=== PATIENT | female | born 1955 | race Caucasian/White ===

== ENCOUNTER → 2019-01-31 06:50 | Outpatient (CLI) | payer MEDICARE, SELFPAY ==
--- NOTE | 2019-01-31 | CA_ITS ---
APPROVED REPORT Exam: Pharmacologic Technologist: Leticia Padilla Ht: 5 ft 3 in Wt: 210 lbs BSA: 1.97 m2 HR: 63 bpm BP: 158/54 mmHg Indications: Chest pain Medical History Medications: Aspirin,,,,, Metoprolol,,,,, Metformin,,,,, Losartan,,,,, HCTZ,,,,, GlYBURIDE,,,,, LanTUS,,,,, Stress Test Details Test: LEXISCAN HR Resting HR: 58 bpm Max Heart Rate (APMHR): 155 bpm Max HR Achieved: 66 bpm Target HR (85% APMHR): 131 bpm % of APMHR: 42 Recovery HR: 65 bpm BP Resting BP: 158.0/54.0 mmHg Max BP: 158.0/54.0 mmHg Recovery BP: 149.0/65.0 mmHg ECG Clinical Exercise duration: 04:10 min Highest Stage Achieved: Exercise capacity: 1.0 METs Stress ECG Conclusion Resting ECG: Sinus bradycardia, sinus rhythm, abnormal. Lexiscan portion completed. Symptoms: Shortness of breath during peak infusion, resolved in recovery. No chest pain. Arrhythmias/Ectopy: Occasional PVC ST-T Changes: Less than 1.[address] depression. Conclusion: Images to follow. Electronically signed by : Neftaly Deng, 02/01/2019 05:59:50
--- NOTE | 2019-01-31 06:51 | NM_ITS ---
APPROVED REPORT Exam: Nuclear Stress Test Indication: Chest pain, SOB, Fatigue, Abnormal EKG, HTN, DM, High cholesterol, Family history Patient Location: Outpatient Stress Tech: Leticia Padilla [place] Tech:Moon Hagan, ARRT, RT (R)(N) Ht: 5 ft 3 in Wt: 210 lbs Bra Size: 42D HR: 63 bpm BP: 158/54 mmHg BSA: 1.97 m2 BMI: 37.1 History: Chest pain, SOB, Fatigue, Abnormal EKG, HTN, DM, High cholesterol, Family history Procedure: Patient received a 0.4 mg of intravenous Lexiscan, resting heart rate 63 bpm, resting blood pressure 158/54 mmHg, with Lexiscan maximum heart rate achived was 62 bpm which is Less than 85 % of the maximum predicted heart rate and blood pressure was 124/54 mmHg. With Lexiscan, patient denied any complaint of chest pain. Electrocardiogram Resting electrocardiogram showed sinus bradycardia right ventricular conduction delay, possible right ventricular hypertrophy, or posterior infarct, with Lexiscan there is less than 1.[address] segment depression noted from the baseline EKG. The EKG portion of the Lexiscan Myoview is nondiagnostic. Cardiac Stress and Resting SPECT Images: Cardiac Stress and Resting SPECT images were obtained using technetium 99m Myoview 32.0 mCi stress and 10.54 mCi at rest. Gated SPECT with analysis of segmental wall motion and calculation of the ejection fraction also done. Cardiac stress and resting SPECT images show uniform myocardial activity without segmental perfusion abnormality, computer derived ejection fraction is over 65% with no regional wall motion abnormality, right ventricle is mildly enlarged with normal contractility. Conclusion: 1. The EKG portion of the Lexiscan Myoview is nondiagnostic. 2. No scintigraphic evidence of reversible ischemia seen, computer derived ejection fraction is over 65% with no regional wall motion abnormality, right ventricle is mildly enlarged with normal contractility. 3. Normal Lexiscan Myoview study except the right ventricle is mildly enlarged with normal contractility. Electronically signed by : Neftaly Deng, 02/01/2019 06:01:51
--- NOTE | 2019-01-31 06:51 | CA_ITS ---
APPROVED REPORT EXAM: Comprehensive 2D, Doppler, and color-flow Echocardiogram Edge Inker Heels: Kristyn Garza RDCS Ht: 5 ft 3 in Wt: 210lbs BSA: 1.97 BP: 179/82 mmHg Indications: Abnormal ECG, Chest Pain, Shortness of Breath, Diabetes, Fatigue, Hypertension/HDD M-Mode Dimensions RVDd 3.38 cm (0.9-2.6) LVDd 4.03 cm (3.5-5.7) LVDs 3.10 cm (3.5-5.7) IVSd 1.45 cm (0.6-1.1) PWd 1.29 cm (0.6-1.1) EF (Teich) 46.80% FS 23.10% EDV (Teich) 71.30 mL ESV (Teich) 37.90 mL LV Diastology E/A Ratio 0.55 Mitral Valve MV A Velocity 107.00 (40-130 cm/s) Left Ventricle Left atrium is mildly enlarged, left ventricle is normal size, mild concentric left ventricular hypertrophy, visually estimated ejection fraction 55% with no regional wall motion abnormality, grade 1 diastolic dysfunction seen without tissue Doppler evidence of raise left atrial pressure. Right Ventricle Right atrium and right ventricle mildly enlarged with normal contractility. Aortic Valve Aortic valve is minimally thickened and fibrosed, there is no aortic stenosis aortic insufficiency. Mitral Valve Mitral valve leaflets are minimally thickened, there is mild mitral regurgitation. Tricuspid Valve Tricuspid valve is grossly normal, there is mild tricuspid regurgitation, calculated right ventricular systolic pressure is 48 mmHg which is moderately elevated. Pulmonic Valve Pulmonic valve is poorly visualized. Great Vessels Aortic root is normal size. Pericardium No significant pericardial effusion noted. Conclusion 1. Mildly enlarged left atrium, normal left ventricular size, mild concentric left ventricular hypertrophy, visually estimated ejection fraction 55% with no regional wall motion abnormality, grade 1 diastolic dysfunction seen without tissue Doppler evidence of raise left atrial pressure. 2. Mildly enlarged right ventricle with normal contractility. 3. Thickened and calcified aortic valve without aortic stenosis aortic insufficiency. 4. Mild mitral and tricuspid regurgitation, calculated right ventricular systolic pressure is 48 mmHg consistent with moderately elevated right ventricular systolic pressure. 5. Inferior vena cava is not well-visualized, no significant pericardial effusion noted. Electronically signed by : Neftaly Deng 02/01/2019 06:28:30
--- NOTE | 2019-01-31 09:09 | HMH.ITSHM ---
Current Home Medications as stated by this patient Mony Crow or sales support representative. []METFORMIN GLYBURIDE ASA LANTUS HCTZ METOPROLOL LOSARTAN VITAMIN C VITAMIN D3 OSCAR MINAYA
== END ==
PROVIDERS: PCP Family Medicine; Visit Provider Urology
DX: I10 Essential (primary) hypertension (principal); R06.02 Shortness of breath; R07.9 Chest pain, unspecified; R53.83 Other fatigue; R94.31 Abnormal electrocardiogram [ECG] [EKG]
CPT/HCPCS: 78452; 93017; 93306; A9502; J2785

== ENCOUNTER → 2019-02-22 09:19 | Outpatient (CLI) | payer MEDICARE, SELFPAY ==
[2019-02-22 11:25] LABS: Anion Gap 13.3 mEq/L (5-15); Blood Urea Nitrogen 21 mg/dL (7-18); Calcium 8.2 mg/dL (8.5-10.1); Carbon Dioxide 32 mmol/L (21.0-32.0); Chloride 103 mmol/L (98-107); Creatinine,Serum 0.87 mg/dL (0.55-1.02); Estimated Glomerular Filt Rate 65 ml/min (>60); GFR (African American) 79 ML/MIN (>60); Glucose 86 mg/dL (74-106); Potassium 3.3 mmoL/L (3.5-5.1); Sodium 145 mmol/L (136-145)
== END ==
PROVIDERS: Visit Provider Nurse Practitioner Family
DX: I27.20 Pulmonary hypertension, unspecified (principal); I50.30 Unspecified diastolic (congestive) heart failure; R60.9 Edema, unspecified; R06.02 Shortness of breath
CPT/HCPCS: 36415; 80048

== ENCOUNTER → 2019-03-07 14:42 | Outpatient (CLI) | payer MEDICARE, SELFPAY ==
[2019-03-07 16:11] LABS: Anion Gap 12.6 mEq/L (5-15); Blood Urea Nitrogen 12 mg/dL (7-18); Calcium 8.4 mg/dL (8.5-10.1); Carbon Dioxide 31 mmol/L (21.0-32.0); Chloride 106 mmol/L (98-107); Creatinine,Serum 0.76 mg/dL (0.55-1.02); Estimated Glomerular Filt Rate 76 ml/min (>60); GFR (African American) 92 ML/MIN (>60); Glucose 99 mg/dL (74-106); Potassium 3.6 mmoL/L (3.5-5.1); Sodium 146 mmol/L (136-145)
== END ==
PROVIDERS: Visit Provider Urology
DX: I27.20 Pulmonary hypertension, unspecified; I10 Essential (primary) hypertension; R60.9 Edema, unspecified
CPT/HCPCS: 36415; 80048

== ENCOUNTER 2020-07-15 19:45 | Emergency (ER) | payer MEDICARE, SELFPAY ==
[2020-07-15 19:47] VITALS: BP 207/69; PULSE 59; RESP 18; TEMP 36.7; O2SAT 99; BMI 42.0
--- NOTE | 2020-07-15 20:31 | XR_ITS ---
PROCEDURE INFORMATION: Exam: XR Chest Exam date and time: 07/15/20 08:31 PM Age: 64 years old Clinical indication: Other: Edema in extremeties. ; Patient HX: Edema in all extremeties. ; Additional info: Cp TECHNIQUE: Imaging protocol: XR of the chest. Views: 2 views. COMPARISON: CR XR CHEST 2V 01/16/19 10:18 PM FINDINGS: Lungs: Unremarkable. No consolidation. Pleural spaces: Unremarkable. No pleural effusion. No pneumothorax. Heart/Mediastinum: Unremarkable. No cardiomegaly. Bones/joints: Unremarkable. IMPRESSION: No acute findings.
--- NOTE | 2020-07-15 20:35 | ECG_ITS ---
APPROVED REPORT Exam: Resting ECG HR:52 bpm ECG Measurements Heart Rate 52 AXES ME 182 P 46 QRSd 104 QRS 0 QT 482 T 30 QTc 448 Conclusion Sinus bradycardia Otherwise normal ECG Electronically signed by : Steven Carlin, 07/18/2020 21:25:55
[2020-07-15 20:43] LABS: Microscopic, Urine URINE MICROSCOPIC (MICROSCOPIC)
[2020-07-15 20:48] LABS: Appearance,Urine CLEAR (Clear); Bilirubin,Urine Negative (Negative); Blood, Urine Negative (Negative); Color,Urine YELLOW (Yellow); Glucose,Urine (UA) Negative (Negative); Ketones,Urine Negative (Negative); Leukocyte Esterase,Urine 1+ (Negative); Nitrate,Urine Negative (Negative); PH,Urine 6.5 (5.0-8.5); Protein,Urine Negative (Negative); Specific Gravity, Urine <= 1.005 (1.005-1.030); Urobilinogen,Urine 0.2 EU/dl (0.2)
[2020-07-15 20:55] VITALS: BP 178/72; PULSE 53
[2020-07-15 21:01] LABS: Bacteria,Urine 1+ /lpf
[2020-07-15 21:09] LABS: Basophils % 0.4 % (0.1-2.0); Eosinophils # 0.3 K/mm3 (0.0-0.4); Eosinophils % 4.4 % (0.1-12.0); Hematocrit 33.8 % (37.0-47.0); Lymphocytes # 1.9 K/mm3 (0.7-4.5); Lymphocytes % 26.5 % (10-50); Mean Corpuscular HGB Conc 32.4 g/dL (31.8-35.4); Mean Corpuscular Hemoglobin 29.5 pg (27.0-31.2); Mean Corpuscular Volume 91.1 fl (81-99); Mean Platelet Volume 8.1 fl (7.4-10.4); Monocytes # 0.6 K/mm3 (0.1-1.0); Monocytes % 8.4 % (1.7-9.3); Neutrophils # 4.3 K/mm3 (1.8-7.8); Neutrophils % 60.4 % (37.0-80.0); Platelet Count 169 K/mm3 (142-424); Red Blood Count 3.71 M/mm3 (4.20-5.40); Red Cell Distribution Width 13.6 % (11.5-17.5); White Blood Count 7.2 K/mm3 (4.8-10.8)
[2020-07-15 21:14] LABS: Chloride 100 mmol/L (98-107); Sodium 138 mmol/L (136-145)
[2020-07-15 21:15] LABS: Potassium 4.3 mmoL/L (3.5-5.1)
[2020-07-15 21:17] LABS: Blood Urea Nitrogen 25 mg/dl (7-17); Creatinine Clearance Estimated 46 mL/min (50-200); Estimated Glomerular Filt Rate 72 ml/min (>60); GFR (African American) 87 ML/MIN (>60)
[2020-07-15 21:18] LABS: Anion Gap 10.3 mEq/L (5-15); Calcium 9.8 mg/dl (8.4-10.2); Carbon Dioxide 32 mmol/L (22.0-30.0); Glucose 126 mg/dl (74-100)
--- NOTE | 2020-07-15 21:19 | HMH.EDCP ---
ED Disposition Clinical Impression: Chest pain Qualifiers: Chest pain type: precordial pain Qualified Code(s): R07.2 - Precordial pain HTN (hypertension) Qualifiers: Hypertension type: essential hypertension Qualified Code(s): I10 - Essential (primary) hypertension UTI (urinary tract infection) Qualifiers: Urinary tract infection type: site unspecified Hematuria presence: without hematuria Qualified Code(s): N39.0 - Urinary tract infection, site not specified Disposition: Home, Self-Care Condition on Discharge: Good Instructions: DI for Chest Pain Additional Instructions: see card in am and call pcp for follow up and urine culture results Prescriptions: levoFLOXacin [Levaquin 500mg tab] 500 mg PO DAILY #7 tab Transmission Status: P[id number] Referrals: Linus Mata MD [Primary Care Provider] - - Critical Care Critical Care Time: No Attestation: On 07/15/20, the high probability of a clinically significant, sudden or life threatening deterioration of the following system(s) required my full and direct attention, intervention and personal management. The time I documented below is in addition to time spent performing reported procedures but includes the following listed in this critical care notation. Medical Decision Making - Medical Records Medical records reviewed: Yes: I reviewed the patient's medical records. - Anthony Inquiry Pt receiving controlled substance: No Vital Signs: 07/15/20 19:47 07/15/20 20:55 07/15/20 21:30 Temperature 98.0 F Temperature Source Oral Pulse Rate 53 L 51 L Pulse Rate [Right Radial] 59 L Respiratory Rate 18 Blood Pressure 178/72 H 147/57 H Blood Pressure [Right Arm] 207/69 H Blood Pressure Mean [Right Arm] 115 Blood Pressure Source Manual Cuff/ Auscultation Automatic Cuff Blood Pressure Source [Right Arm] Automatic Cuff Blood Pressure Position Sitting Sitting Blood Pressure Position [Right Arm] Sitting 02 Sat by Pulse Oximetry 99 99 Oxygen Delivery Method Room Air Room Air 07/15/20 22:00 07/15/20 22:30 Temperature Temperature Source Pulse Rate 50 L 50 L Pulse Rate [Right Radial] Respiratory Rate Blood Pressure 142/52 H 144/49 H Blood Pressure [Right Arm] Blood Pressure Mean [Right Arm] Blood Pressure Source Automatic Cuff Automatic Cuff Blood Pressure Source [Right Arm] Blood Pressure Position Sitting Supine Blood Pressure Position [Right Arm] 02 Sat by Pulse Oximetry 98 98 Oxygen Delivery Method Room Air Room Air - Lab Data Lab results reviewed: Yes: I reviewed the patient's lab results. Lab Results 07/15/20 20:40: Urine Color Yellow, Urine Appearance Clear, Urine pH 6.5, Ur Specific [place] <= 1.005, Urine Protein Negative, Urine Glucose (UA) Negative, Urine Ketones Negative, Urine Blood Negative, Urine Nitrate Negative, Urine Bilirubin Negative, Urine Urobilinogen 0.2, Ur Leukocyte Esterase 1+ A, Urine RBC None, Urine WBC 10-20, Ur Squamous Epith Cells 5-10, Urine Bacteria 1+ 07/15/20 20:53: WBC 7.2, RBC 3.71 L, Hgb 11.0 L, Hct 33.8 L, MCV 91.1, MCH 29.5, MCHC 32.4, RDW 13.6, Plt Count 169, MPV 8.1, Neut % (Auto) 60.4, Lymph % (Auto) 26.5, Nance % (Auto) 8.4, Eos % (Auto) 4.4, Baso % (Auto) 0.4, Neut # (Auto) 4.3, Lymph # (Auto) 1.9, Nance # (Auto) 0.6, Eos # (Auto) 0.3, Baso # (Auto) 0.0 07/15/20 20:53: Sodium 138, Potassium 4.3, Chloride 100, Carbon Dioxide 32 H, Anion Gap 10.3, BUN 25 H, Creatinine 0.80, Estimated Creat Clear 46, Estimated GFR 72, Est GFR ( Amer) 87, Glucose 126 H, Calcium 9.8, Troponin I < 0.01 07/15/20 20:53: NT-Pro-B Natriuret Pep 844 H 07/15/20 22:27: Troponin I < 0.01 Result diagrams: 07/15/20 20:53 07/15/20 20:53 Orders (Tests/Meds): ED MEDICATIONS Generic Name Dose Route Start Last Admin Trade Name Freq PRN Reason Stop Dose Admin Ceftriaxone Sodium 1 gm/ 50 mls @ 100 mls/hr 07/15/20 21:45 07/15/20 21:38 Sodium Chloride IV 07/29/20 21:44
[2020-07-15 21:27] LABS: NT Pro Brain Natriuretic Pep. 844 pg/mL (0-125)
[2020-07-15 21:30] VITALS: BP 147/57; PULSE 51; O2SAT 99
[2020-07-15 21:31] LABS: Troponin I < 0.01 ng/ml (0.00-0.034)
[2020-07-15 22:00] VITALS: BP 142/52; PULSE 50; O2SAT 98
[2020-07-15 22:30] VITALS: BP 144/49; PULSE 50; O2SAT 98
[2020-07-15 22:54] LABS: Troponin I < 0.01 ng/ml (0.00-0.034)
[2020-07-15 23:14] VITALS: BP 138/55; PULSE 52; RESP 18; TEMP 36.6; O2SAT 99
== END 2020-07-15 23:16 | disposition home or self-care (01) ==
PROVIDERS: Emergency Medicine; Emergency Provider Student in an Organized Health Care Education/Training Program; PCP Family Medicine
DX: R07.2 Precordial pain (principal); R60.9 Edema, unspecified; I10 Essential (primary) hypertension; N39.0 Urinary tract infection, site not specified; E11.9 Type 2 diabetes mellitus without complications; F41.9 Anxiety disorder, unspecified; Z88.1 Allergy status to other antibiotic agents; Z79.899 Other long term (current) drug therapy; R06.02 Shortness of breath
CPT/HCPCS: 71046; 80048; 81001; 83880; 84484; 85025; 87086; 93005; 96365; 99283

== ENCOUNTER → 2020-08-08 14:55 | Outpatient (CLI) | payer MEDICARE, SELFPAY ==
--- NOTE | 2020-08-08 14:55 | CA_ITS ---
APPROVED REPORT EXAM: Comprehensive 2D, Doppler, and color-flow Echocardiogram Gas Specialist: JOSE ALEJANDRO [place], RVS Ht: 5 ft 3 in Wt: 232lbs BSA: 2.06 BP: 144/36 mmHg Indications: SOA, CP, HTN, diastolic dysfunction, edema Echo Enhancing Agent Comments: Poor acoustic windows throughout exam 2D Dimensions IVSd 1.15 cm LVEF (Visual) 45.60 % PWd 1.33 cm LA Volume 60.00 mL LVDd 4.56 cm LA Volume Index 29.10 mL/m2 (M/F) 16-34 LVDs 3.53 cm LVOT 1.72 cm (M/F) 1.5-2.5 M-Mode Dimensions LA Diam 4.36 cm (1.9-4.0) LVDd 4.81 cm (3.5-5.7) Ao Diam 2.64 cm (2.0-3.7) LVDs 2.46 cm (3.5-5.7) EF (Teich) 80.20% EPSs 0.34 cm FS 48.90% EDV (Teich) 108.00 mL TAPSE 2.90 (<1.7) ESV (Teich) 21.40 mL LV Diastology E Decel Time 313.00 (160-240 msec) E/A Ratio 1.05 MED E' 8.60 (< 7 cm/sec) MED A' 9.20 cm/s E'/MED E' Ratio 12.24 (>14) LAT E' 8.50 (<10 cm/sec) LAT A' 11.60 cm/s E/LAT E' Ratio 12.39 (>14) Pulm Vein s 40.00 cm/sec Pulm Vein d 27.00 cm/sec Ar-A Duration 123.00 msec Aortic Valve LVOT Max 139.00 (70-110 cm/s) LVOT VTI 41.51 cm AoV Peak Darren. 198.00 (50-130 cm/s) AO Peak GR. 15.70 mmHg AO Mean GR. 8.20 (<5 mmHg) AO VTI 48.15 (18-25 cm) LARA (VTI) 2.00 (2.5-4.5 cm2) Mitral Valve MV A Velocity 100.00 (40-130 cm/s) E/A Ratio 1.05 MV Decel. Time 313.00 (160-240 ms) MV Mean Gr. 1.80 (<2mmHg) Pulmonary Valve PV Peak Velocity 112.00 (50-150 cm/s) Tricuspid Valve TR P. Velocity 282.00 cm/s RAP Estimate 10.00 mmHg RVSP 41.80 mmHg Left Ventricle Left atrium is mildly enlarged, left ventricle is normal size, mild concentric left ventricular hypertrophy, visually estimated ejection fraction 55% with no regional wall motion abnormality, diastolic parameters are inconclusive. Right Ventricle Right atrium and right ventricle are normal size and contractility. Aortic Valve Aortic valve is minimally thickened and fibrosed, there is no aortic stenosis or aortic insufficiency. Mitral Valve Mitral valve has mitral calcification there is no mitral stenosis, there is mild mitral regurgitation. Tricuspid Valve Tricuspid grossly normal, there is trace tricuspid regurgitation, tricuspid regurgitation jet velocity is inadequate for calculation of the right ventricular systolic pressure. Pulmonic Valve Pulmonic valve is poorly visualized. Great Vessels Aortic root is normal size. Pericardium No significant pericardial effusion noted. Conclusion 1. Mildly enlarged left atrium, normal left ventricular size, mild concentric left ventricular hypertrophy, visually estimated ejection fraction 55% with no regional wall motion abnormality, diastolic parameters are inconclusive. 2. Thickened and calcified aortic valve without Doppler evidence of aortic stenosis or aortic insufficiency. 3. Mild mitral and trace tricuspid regurgitation. 4. No significant pericardial effusion noted. Electronically signed by : Neftaly Deng, 08/08/2020 16:26:04
[2020-08-08 16:29] LABS: Chloride 100 mmol/L (98-107); Potassium 4.6 mmoL/L (3.5-5.1); Sodium 139 mmol/L (136-145)
[2020-08-08 16:32] LABS: Anion Gap 10.6 mEq/L (5-15); Blood Urea Nitrogen 39 mg/dl (7-17); Calcium 9.6 mg/dl (8.4-10.2); Carbon Dioxide 33 mmol/L (22.0-30.0); Estimated Glomerular Filt Rate 45 ml/min (>60); GFR (African American) 54 ML/MIN (>60); Glucose 208 mg/dl (74-100)
== END ==
PROVIDERS: PCP Family Medicine; Visit Provider Nurse Practitioner Family
DX: I10 Essential (primary) hypertension (principal); I27.20 Pulmonary hypertension, unspecified; R06.02 Shortness of breath; R60.0 Localized edema
CPT/HCPCS: 36415; 80048; 93306

== ENCOUNTER → 2020-08-08 15:42 | Outpatient (CLI) | payer MEDICARE, SELFPAY | PROVIDERS: Visit Provider Nurse Practitioner Family | DX: R60.9 Edema, unspecified (principal) | CPT/HCPCS: 36415; 80048 ==

== ENCOUNTER → 2020-08-13 13:38 | Outpatient (CLI) | payer MEDICARE, SELFPAY ==
[2020-08-13 14:51] LABS: Chloride 100 mmol/L (98-107); Potassium 4.7 mmoL/L (3.5-5.1); Sodium 140 mmol/L (136-145)
[2020-08-13 14:54] LABS: Anion Gap 11.7 mEq/L (5-15); Blood Urea Nitrogen 43 mg/dl (7-17); Carbon Dioxide 33 mmol/L (22.0-30.0); Estimated Glomerular Filt Rate 45 ml/min (>60); GFR (African American) 54 ML/MIN (>60); Glucose 134 mg/dl (74-100)
== END ==
PROVIDERS: Visit Provider Physician Assistant
DX: I51.89 Other ill-defined heart diseases (principal); R60.9 Edema, unspecified
CPT/HCPCS: 36415; 80048

== ENCOUNTER → 2020-08-29 07:12 | Outpatient (CLI) | payer MEDICARE, SELFPAY ==
--- NOTE | 2020-08-29 07:13 | CA_ITS ---
APPROVED REPORT Exam: Pharmacologic Technologist: Sunita Madison, Ht: 5 ft 3 in Wt: 239 lbs BSA: 2.09 m2 HR: 49 bpm BP: 167/53 mmHg Rhythm: sinus carline, borderline 1st degree AVB, ST-Tabns inferiorly, low voltage QRS Medical History Medical History: HTN, Hyperlipidemia, Diabetic ??? Insulin Medications: Aspirin,,,,, Metoprolol,,,,, Losartan,,,,, Pioglitazone,,,,, Lasix,,,,, GlYBURIDE,,,,, Vit D3,,,,, Vit C,,,,, Ezetimbe,,,,, Fexofenadine,,,,, SpirOnALACTONE,,,,, INSULIN GLARGINE,,,,, Cardiac Risk Factors: Diabetes (insulin), HTN, Hyperlipidemia Stress Test Details Test: LEXISCAN HR Resting HR: 52 bpm Max Heart Rate (APMHR): 154.236737 bpm Max HR Achieved: 63 bpm Target HR (85% APMHR): 130.323297 bpm % of APMHR: 40.91 Recovery HR: 58 bpm BP Resting BP: 167/53 mmHg Max BP: 167/53 mmHg Recovery BP: 148.0/58.0 mmHg ECG Resting ECG: sinus carline, borderline 1st degree AVB, ST-T abns inferiorly, low voltage QRS Maximum ST Deviation: 3.5 mm Clinical Exercise duration: 04:22 min Highest Stage Achieved: Scale: Active Stress ECG Conclusion During lexiscan pt experinced mild SOA, mild chest pressure, transient fatique. No arrhythmias or ectopy. No ST-T significant changes. Unremarkable lexiscan stress, myoview images reported separately. Electronically signed by : Ahmet Mcghee, 08/30/2020 12:45:33
--- NOTE | 2020-08-29 07:13 | NM_ITS ---
APPROVED REPORT Exam: Nuclear Stress Test Indication: chest pain..short of breath..fatigue Patient Location: Outpatient Stress Tech: Sunita FERREIRA Tech:Marianela DEB Jalloh RT(R)(N) Ht: 5 ft 3 in Wt: 239 lbs Bra Size: 44 d HR: 49 bpm BP: 167/53 mmHg BSA: 2.09 m2 BMI: 42.3 History: chest pain..short of breath..fatigue Procedure: Patient received a 0.4 mg of intravenous Lexiscan, resting heart rate 49 bpm, resting blood pressure 167/53 mmHg, with Lexiscan maximum heart rate achived was 62 bpm which is 85 % of the maximum predicted heart rate and blood pressure was 167/59 mmHg. Cardiac Stress and Resting SPECT Images: Cardiac Stress and Resting SPECT images were obtained using technetium 99m Myoview 32.8 mCi stress and 10.92 mCi at rest. Ejection fraction: 67 % No wall motion abnormalities. No fixed or reversible defects. Conclusion: Normal Electronically signed by : Dav Randolph MD 08/30/2020 14:34:21
== END ==
PROVIDERS: PCP Family Medicine; Visit Provider Nurse Practitioner Family
DX: R07.89 Other chest pain; R06.02 Shortness of breath; R60.0 Localized edema
CPT/HCPCS: 78452; 93017; A9502; J2785

== ENCOUNTER → 2020-09-10 14:16 | Outpatient (CLI) | payer MEDICARE, SELFPAY ==
[2020-09-10 16:02] LABS: Anion Gap 12.2 mEq/L (5-15); Blood Urea Nitrogen 34 mg/dl (7-17); Calcium 9.3 mg/dl (8.4-10.2); Carbon Dioxide 37 mmol/L (22.0-30.0); Chloride 95 mmol/L (98-107); Estimated Glomerular Filt Rate 45 ml/min (>60); GFR (African American) 54 ML/MIN (>60); Glucose 183 mg/dl (74-100); Potassium 4.2 mmoL/L (3.5-5.1); Sodium 140 mmol/L (136-145)
== END ==
PROVIDERS: Visit Provider Nurse Practitioner Family
DX: E11.9 Type 2 diabetes mellitus without complications (principal); I10 Essential (primary) hypertension; I27.20 Pulmonary hypertension, unspecified; R06.02 Shortness of breath; R07.89 Other chest pain; R60.0 Localized edema; Z79.4 Long term (current) use of insulin
CPT/HCPCS: 36415; 80048

== ENCOUNTER → 2020-09-11 10:40 | Outpatient (CLI) | payer MEDICARE, SELFPAY | PROVIDERS: PCP Internal Medicine Cardiovascular Disease; Visit Provider Nurse Practitioner Family | DX: G47.33 Obstructive sleep apnea (adult) (pediatric) (principal); R40.0 Somnolence; G47.9 Sleep disorder, unspecified | CPT/HCPCS: G0399 ==

== ENCOUNTER → 2020-10-01 13:18 | Outpatient (CLI) | payer MEDICARE, SELFPAY ==
[2020-10-01 14:10] LABS: Chloride 104 mmol/L (98-107); Sodium 142 mmol/L (136-145)
[2020-10-01 14:11] LABS: Potassium 4.4 mmoL/L (3.5-5.1)
[2020-10-01 14:14] LABS: Anion Gap 11.4 mEq/L (5-15); Blood Urea Nitrogen 26 mg/dl (7-17); Calcium 8.8 mg/dl (8.4-10.2); Carbon Dioxide 31 mmol/L (22.0-30.0); Estimated Glomerular Filt Rate 50 ml/min (>60); GFR (African American) 60 ML/MIN (>60); Glucose 236 mg/dl (74-100)
== END ==
PROVIDERS: Visit Provider Internal Medicine
DX: I10 Essential (primary) hypertension (principal)
CPT/HCPCS: 36415; 80048

== ENCOUNTER → 2020-10-23 14:26 | Outpatient (CLI) | payer MEDICARE, SELFPAY ==
[2020-10-23 15:01] LABS: Free T4 (Free Thyroxine) 1.18 ng/dl (0.78-2.19)
[2020-10-23 15:15] LABS: Thyroid Stimulating Hormone 1.88 uIU/mL (0.465-4.68)
== END ==
PROVIDERS: Visit Provider Emergency Medicine
DX: E11.9 Type 2 diabetes mellitus without complications (principal); Z79.4 Long term (current) use of insulin
CPT/HCPCS: 84439; 84443

== ENCOUNTER → 2021-03-21 11:05 | Outpatient (CLI) | payer MEDICARE, SELFPAY | PROVIDERS: Visit Provider Nurse Practitioner Family | DX: Z20.822 Contact with and (suspected) exposure to COVID-19 (principal) | CPT/HCPCS: C9803; U0003; U0005 ==

== ENCOUNTER 2021-08-23 10:02 | Emergency (ER) | payer MEDICARE, SELFPAY ==
[2021-08-23 10:47] VITALS: BP 148/64; PULSE 88; RESP 17; TEMP 37.3; O2SAT 95; BMI 37.7
--- NOTE | 2021-08-23 10:49 | HMH.EDUTC ---
[facility] [place] Disposition Clinical Impression: Diabetes Upper respiratory infection Qualifiers: URI type: unspecified viral URI Qualified Code(s): J06.9 - Acute upper respiratory infection, unspecified Disposition: Home, Self-Care Condition on Discharge: Good Instructions: DI for COVID-19 (Suspected or Confirmed ) Additional Instructions: Your COVID19 test results will be back later today Take meds as prescribed Follow up with Dr Juarez if symptoms worsen Prescriptions: Benzonatate [Benzonatate 200mg Cap] 200 mg PO TID PRN 10 Days #30 cap PRN Reason: Cough Transmission Status: [id number] Guaifenesin/Dextromethorphan [Mucinex Dm ER 1,200-60 mg Tab] 1 tab PO BID 10 Days #20 tab Transmission Status: [id number] Albuterol Sulfate [Proair Hfa] 2 inh IH Q4HP PRN 30 Days #1 each PRN Reason: wheezing/shortness of breath Transmission Status: [id number] Referrals: Provider,Referral, [Primary Care Provider] - Time of Disposition: 10:59 Medical Decision Making - Anthony Inquiry Pt receiving controlled substance: No Orders (Tests/Meds): ORDERS Category Date Time Status Full Resp Panel w/COVID ([facility]) Routine Lab 08/23/21 10:44 Ordered [facility] [place] HPI - General Stated complaint: congestion, runny nose, cough, h/a, sore throat Time Seen by Provider: 08/23/21 10:49 - History of Present Illness Provider Complaint: Runny nose, congestion, cough, sore throat, headache X 5 days. [place] like she was getting better than got worse again. PCP requested she have COVID test. No fever. No vomiting or diarrhea. She is diabetic. Only received 1 COVID vaccine due to adverse reaction. Onset (ago): day(s) (5) Location: chest Relieving factors: none Exacerbating factors: none Associated symptoms: denies other symptoms Treatments prior to arrival: none - Related Data Home Medications Medication Instructions Recorded Confirmed ascorbate calcium (vitamin C) 500 500 mg PO DAILY 01/17/19 10/23/20 mg tablet cholecalciferol (vitamin D3) 25 1,000 unit PO DAILY 01/17/19 10/23/20 mcg (1,000 unit) capsule fexofenadine 60 mg tablet 60 mg PO BID 01/17/19 10/23/20 glyburide 5 mg tablet 5 mg PO QID tab 01/17/19 10/23/20 Aspirin [Aspirin 81mg EC Tab] 81 mg PO DAILY 07/15/20 10/23/20 Ezetimibe [Zetia] 10 mg PO DAILY 07/15/20 10/23/20 Losartan Potassium [Cozaar 100mg 100 mg PO DAILY 07/15/20 10/23/20 Tablets] acetaminophen 500 mg tablet 500 mg PO Q6H PRN 09/30/20 10/23/20 insulin glargine U-300 conc 300 35 unit SQ .COMPLEX ml 09/30/20 10/23/20 unit/mL (3 mL) subcutaneous pen metoprolol succinate 50 mg 50 mg PO DAILY tab 10/01/20 10/23/20 tablet,extended release 24 hr Previous Rx's Medication Instructions Recorded phentermine 37.5 mg tablet 37.5 mg PO DAILY #30 tab 10/23/20 spironolactone 50 mg tablet See Rx Instructions .ROUTE 06/16/21 .COMPLEX #90 tab furosemide 40 mg tablet See Rx Instructions .ROUTE 06/30/21 .COMPLEX #90 tab Albuterol Sulfate [Proair Hfa] 2 inh IH Q4HP PRN 30 Days #1 each 08/23/21 Benzonatate [Benzonatate 200mg Cap] 200 mg PO TID PRN 10 Days #30 cap 08/23/21 Guaifenesin/Dextromethorphan 1 tab PO BID 10 Days #20 tab 08/23/21 [Mucinex Dm ER 1,200-60 mg Tab] Allergies Allergy/AdvReac Type Severity Reaction Status Date / Time pioglitazone [From Actos] Allergy Severe Swelling Verified 10/23/20 09:16 of Lip/Tongue/Throat Penicillins Allergy Hives Verified 10/23/20 09:16 carbamazepine AdvReac Intermediate Verified 10/23/20 09:16 [From Carbatrol] cinnamon AdvReac Intermediate Verified 10/23/20 09:16 lisinopril AdvReac Intermediate Verified 10/23/20 09:16 metformin AdvReac Intermediate Verified 10/23/20 09:16 pineapple AdvReac Intermediate Verified 10/23/20 09:16 [facility] History - Hepatitis A Screen Attestation statement:: This patient has been screened for Hepatitis A risk factors. I have reviewed th
[2021-08-23 10:53] LABS: Adenovirus,PCR Not Detected (NotDetected); Bordetella Pertussis Not Detected (NotDetected); Chlamydophila Pneumoniae, PCR Not Detected (NotDetected); Coronavirus 19, PCR Not Detected (NotDetected); Coronavirus 229E Not Detected (NotDetected); Coronavirus NL63 Not Detected (NotDetected); Coronavirus OC43 Not Detected (NotDetected); Coronovirus HKU1,PCR Not Detected (NotDetected); Human Metapneumovirus Not Detected (NotDetected); Influenza A, PCR Not Detected (NotDetected); Influenza AH1, 2009 Not Detected (NotDetected); Influenza AH1, PCR Not Detected (NotDetected); Influenza AH3,PCR Not Detected (NotDetected); Influenza B, PCR Not Detected (NotDetected); Mycoplasma Pneumoniae, PCR Not Detected (NotDetected); Parainfluenza 1, PCR Not Detected (NotDetected); Parainfluenza 2, PCR Not Detected (NotDetected); Parainfluenza 3, PCR Not Detected (NotDetected); Parainfluenza 4, PCR Not Detected (NotDetected); Respiratory Syncytial Virus Not Detected (NotDetected)
[2021-08-23 11:04] VITALS: BP 148/64; PULSE 88; RESP 17; TEMP 37.3
[2021-08-23 12:22] LABS: Rhinovirus/Enterovirus Detected (NotDetected)
== END 2021-08-23 11:06 | disposition home or self-care (01) ==
PROVIDERS: Emergency Provider Physician Assistant
DX: Z20.822 Contact with and (suspected) exposure to COVID-19 (principal); J06.9 Acute upper respiratory infection, unspecified; E11.9 Type 2 diabetes mellitus without complications
CPT/HCPCS: 87581; 87632; 87798; 99212; C9803; G0463; U0003; U0005